=== PATIENT | male | born 1965 ===

== ENCOUNTER 2017-06-28 10:25 | Emergency (ER) | payer OTHER ==
[2017-06-28 10:40] VITALS: PULSE 55; TEMP 97.5; BMI 26.6
[2017-06-28] MEDS ORDERED: Sodium Chloride 0.9% 1,000 ML IV STA (11:02)
--- NOTE | 2017-06-28 11:04 | ED PDOC ---
HPI: General Adult Time Seen by Provider: 06/28/17 11:02 Chief Complaint (Nursing): Dizziness/Lightheaded Chief Complaint (Provider): weakness History Per: Patient (52 y/o male h/o regular fentanyl use for chronic pain left sided here for possible withdrawal symptoms. 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 Has been weaned of fentanyl and is now on 25mg patch q72 hours. NOtes nausea/generalized weakness/ tremors.) Past Medical History Reviewed: Historical Data, Nursing Documentation, Vital Signs Vital Signs: Last Vital Signs Temp 97.5 F L 06/28/17 10:39 Pulse 55 L 06/28/17 10:39 Resp 16 06/28/17 10:39 BP 121/76 06/28/17 10:39 Pulse Ox 95 06/28/17 11:05 - Medical History PMH: Denies: Chronic Kidney Disease - Family History Family History: States: No Known Family Hx - Home Medications Home Medications: Ambulatory Orders Medication Instructions Recorded Famotidine [Pepcid] 20 mg PO BID PRN #8 tab 06/28/17 Ondansetron ODT [Zofran ODT] 4 mg PO Q8 PRN #4 odt 06/28/17 - Allergies Allergies/Adverse Reactions: Allergies Allergy/AdvReac Type Severity Reaction Status Date / Time seafoods Allergy SHORTNESS Uncoded 06/28/17 10:51 OF BREATH Review of Systems ROS Statement: Except As Marked, All Systems Reviewed And Found Negative Physical Exam - Reviewed Nursing Documentation Reviewed: Yes Vital Signs Reviewed: Yes - Physical Exam Appears: Positive for: Well, Non-toxic, No Acute Distress Head Exam: Positive for: ATRAUMATIC, NORMAL INSPECTION, NORMOCEPHALIC Skin: Positive for: Normal Color, Warm, DRY Eye Exam: Positive for: EOMI, Normal appearance, PERRL ENT: Positive for: Normal ENT Inspection Neck: Positive for: Normal, Painless ROM Cardiovascular/Chest: Positive for: Regular Rate, Rhythm Respiratory: Positive for: CNT, Normal Breath Sounds Gastrointestinal/Abdominal: Positive for: Normal Exam, Bowel Sounds, Soft Back: Positive for: Normal Inspection Extremity: Positive for: Normal ROM Neurologic/Psych: Positive for: Alert, Oriented - Laboratory Results Result Diagrams: 06/28/17 11:18 06/28/17 11:18 - ECG O2 Sat by Pulse Oximetry: 95 - Progress ED Course And Treament: EKG: SINUS BRADYCARDIA 58BPM; NO ECTOPY; NO ACUTE CHANGES T WAVE INVERSION LEAD III ZOFRAN 4 MG PEPCID 20 MG IV NS 1 LITER WIDE OPEN Disposition - Clinical Impression Clinical Impression: Withdrawal from opioids - Patient ED Disposition Is Patient to be Admitted: No - Disposition Disposition: Routine/Home Disposition Time: 13:49 Condition: FAIR Prescriptions: Famotidine [Pepcid] 20 mg PO BID PRN #8 tab PRN Reason: Nausea/Vomiting Ondansetron ODT [Zofran ODT] 4 mg PO Q8 PRN #4 odt PRN Reason: Nausea/Vomiting Instructions: Opioid Withdrawal (ED) Forms: [employer] (Japanese)
[2017-06-28 11:41] LABS: ALB/GLOB RATIO 1.5 (1.0-2.1); ALKALINE PHOSPHATASE 50 U/L (38-126); ALT/SGPT 34 U/L (21-72); AST/SGOT 36 U/L (17-59); BILIRUBIN,TOTAL 0.6 mg/dl (0.2-1.3); BLOOD UREA NITROGEN 15 mg/dl (9-20); CALCIUM 9.2 mg/dL (8.4-10.2); CARBON DIOXIDE 30 mmol/L (22-30); CHLORIDE 105 mmol/L (98-107); GFR AFRICAN-AMERICAN > 60; GLUCOSE,RANDOM 137 mg/dL (75-110); POTASSIUM 4.2 MMOL/L (3.6-5.0); SODIUM 143 mmol/l (132-148); TOTAL PROTEIN 7.1 G/DL (6.3-8.2)
[2017-06-28 11:53] LABS: BASO % 0.8 % (0.0-2.0); EOS % 0.7 % (0.0-4.0); HEMATOCRIT 42.7 % (35.0-51.0); LYMPH # 0.8 K/uL (1.0-4.3); LYMPH % 15.2 % (20.0-40.0); MEAN CELL VOLUME 93.4 fl (80.0-94.0); MEAN CORPUSCULAR HGB CONC 33.1 g/dL (33.0-37.0); MEAN PLATELET VOLUME 10.3 fl (7.2-11.7); MONO # 0.4 K/uL (0.0-0.8); NEUT # 3.9 K/uL (1.8-7.0); NEUT % 75.3 % (50.0-75.0); RED CELL DISTRIBUTION WIDTH 13.8 % (11.5-14.5); WHITE BLOOD COUNT 5.2 K/uL (4.8-10.8)
[2017-06-28 14:35] VITALS: BP 136/87; RESP 18; O2SAT 99
--- NOTE | 2017-07-01 10:06 | CARD ---
APPROVED REPORT EKG Measurement Heart [id number] <Conclusion> Sinus bradycardia Left axis deviation Incomplete right bundle branch block Abnormal ECG
== END 2017-06-28 14:30 | disposition home or self-care (01) ==
LOC: H.ER 10:25
DX: F11.23 Opioid dependence with withdrawal (principal)
CPT/HCPCS: 80053; 85025; 96361; 96374; 96375; 99285; J2405; J7040